=== PATIENT | male | born 1935 | race Hispanic/Latino ===

== ENCOUNTER 2023-12-10 17:13 | Emergency (ER) | payer BC, MEDICARE ==
[~2023-12-10] VITALS: Ht 177.8 cm; Wt 80.7 kg
[2023-12-10 17:20] VITALS: PULSE 55; RESP 16; O2SAT 100
[2023-12-10 18:33] VITALS: TEMP 97.7
[2023-12-10] MEDS ORDERED: FLOMAX0.4 MG PO (19:14)
== END 2023-12-10 19:30 | disposition home or self-care (01) ==
LOC: ER 18:01
DX: R33.9 Retention of urine, unspecified (principal); R30.0 Dysuria; R10.30 Lower abdominal pain, unspecified
CPT/HCPCS: 99283

== ENCOUNTER 2023-12-11 23:26 | Emergency (ER) | payer BC, MEDICARE ==
[~2023-12-11] VITALS: Ht 177.8 cm; Wt 80.7 kg
[~2023-12-11 23:26] MED LIST: FLOMAX0.4 MG PO
[2023-12-12 00:16] VITALS: PULSE 63; RESP 16; TEMP 98.5
[2023-12-12 00:49] LABS: BASOPHILS # (AUTO) 0.1 (0.0-0.1); BASOPHILS % 0.5 % (0.0-1.0); EOSINOPHILS # (AUTO) 0.2 (0.0-0.4); EOSINOPHILS % 1.9 % (0.0-6.0); HEMATOCRIT 40.7 % (38.2-49.6); HEMOGLOBIN 13.1 g/dL (14.0-18.0); LYMPHOCYTES # (AUTO) 1.6 (1.0-3.2); LYMPHOCYTES % 14.8 % (18.0-39.1); MEAN CORPUSCULAR HEMOGLOBIN 29.7 pg (28-32); MEAN CORPUSCULAR HGB CONC 32.2 g/dL (31-35); MEAN CORPUSCULAR VOLUME 92.3 fL (81-99); MONOCYTES # (AUTO) 0.8 (0.2-0.8); MONOCYTES % 7.3 % (4.4-11.3); NEUTROPHILS % 74.8 % (38.7-80.0); PLATELET COUNT 359 x10e3/uL (140-360); RED BLOOD COUNT 4.41 x10e6/uL (4.3-5.7); RED CELL DISTRIBUTION WIDTH 14.5 % (11.7-14.4); WHITE BLOOD COUNT 10.72 x10e3/uL (4.8-10.8)
[2023-12-12 01:04] LABS: ANION GAP 14.6 mmol/L (8-16); CALCIUM 9.5 mg/dL (8.4-10.2); CREATININE, SERUM 1.59 mg/dL (0.72-1.25); POTASSIUM 3.6 mmol/L (3.5-5.1)
[2023-12-12] MEDS: LIDOCAINE JELLY 2% 10ML URO-JET TOP ONE (01:19)
[2023-12-12 01:59] LABS: BILIRUBIN,URINE NEGATIVE (NEGATIVE); CLARITY,URINE CLOUDY (CLEAR); COLOR,URINE RED (YELLOW); GLUCOSE, URINE NEGATIVE (NEGATIVE); KETONES,URINE NEGATIVE (NEGATIVE); LEUKOCYTE ESTERASE ,URINE NEGATIVE (NEGATIVE); NITRITE,URINE NEGATIVE (NEGATIVE); PH,URINE 7 (5 - 7); PROTEIN,URINE DIPSTICK >=300 (NEGATIVE); URINE UROBILINOGEN 1 mg/dL (0.2 - 1)
[2023-12-12 02:00] LABS: RBC,URINE >50 /HPF (0-5); WBC,URINE (MAN) 0-5 /HPF (0-5)
[2023-12-12 02:01] LABS: BACTERIA,URINE MODERATE /HPF; EPITHELIAL CELLS,URINE RARE /LPF
[2023-12-12 02:57] VITALS: BP 156/69; PULSE 60; RESP 17; TEMP 98.4; O2SAT 100
== END 2023-12-12 02:53 | disposition home or self-care (01) ==
LOC: ER 23:32
DX: R31.9 Hematuria, unspecified (principal); R33.9 Retention of urine, unspecified; Z85.46 Personal history of malignant neoplasm of prostate
CPT/HCPCS: 36415; 51700; 80048; 81001; 85025; 87086; 99283

== ENCOUNTER 2024-05-24 22:13 | Inpatient (IN) | payer MEDICARE, BC ==
[~2024-05-24] VITALS: Ht 177.8 cm; Wt 80.7 kg
[2024-05-24 22:13] VITALS: TEMP 97.7
[2024-05-24 23:18] LABS: ALBUMIN 2.4 g/dL (3.5-5.0); ALBUMIN/GLOBULIN RATIO 0.8 (0.8-2.0); ANION GAP 23.4 mmol/L (8-16); CALCIUM 9.5 mg/dL (8.4-10.2); CREATININE, SERUM 3.62 mg/dL (0.72-1.25); TOTAL PROTEIN 5.5 g/dL (6.5-8.1)
[2024-05-24 23:19] LABS: LIPASE 77 U/L (8-78)
[2024-05-24 23:20] LABS: POTASSIUM 3.4 mmol/L (3.5-5.1)
[2024-05-24 23:29] LABS: BASOPHILS % 0.3 % (0.0-1.0); EOSINOPHILS # (AUTO) 0.1 (0.0-0.4); EOSINOPHILS % 0.6 % (0.0-6.0); HEMATOCRIT 37.4 % (38.2-49.6); HEMOGLOBIN 12.9 g/dL (14.0-18.0); LYMPHOCYTES # (AUTO) 1.7 (1.0-3.2); LYMPHOCYTES % 15.3 % (18.0-39.1); MEAN CORPUSCULAR HEMOGLOBIN 28.7 pg (28-32); MEAN CORPUSCULAR HGB CONC 34.5 g/dL (31-35); MEAN CORPUSCULAR VOLUME 83.3 fL (81-99); MONOCYTES # (AUTO) 0.9 (0.2-0.8); NEUTROPHILS # (AUTO) 7.8 (2.1-6.9); NEUTROPHILS % 71.4 % (38.7-80.0); PLATELET COUNT 298 x10e3/uL (140-360); RED BLOOD COUNT 4.49 x10e6/uL (4.3-5.7); RED CELL DISTRIBUTION WIDTH 16.9 % (11.7-14.4); WHITE BLOOD COUNT 10.87 x10e3/uL (4.8-10.8)
[2024-05-24 23:52] LABS: TROPONIN I < 0.05 ng/mL (0.0-0.40)
[2024-05-24] MEDS: SODIUM CHLORIDE 0.9% 1000ML 1,000 ML IV ONE (23:55)
[2024-05-25] VITALS (7 sets, daily range): BP systolic 100–110; BP diastolic 51–61; PULSE 64–76; RESP 15–20; TEMP 97–98; O2SAT 96–98
[2024-05-25] MEDS ORDERED: SODIUM CHLORIDE 0.9% 1000ML 1,000 ML ONE (02:45)
[2024-05-25] MEDS: SODIUM CHLORIDE 0.9% 1000ML 1,000 ML IV ONE (02:49)
[2024-05-25] MEDS ORDERED: ONDANSETRON HCL INJ 2MG/ML 2ML 2 MG/ML VIAL IV PRN ×2 (03:00→03:30)
[2024-05-25] MEDS ORDERED: BICALUTAMIDE50 MG PO (04:32)
[2024-05-25] MEDS ORDERED: MOTRIN200 MG PO (04:41)
[2024-05-25] MEDS ORDERED: ACETAMINOPHEN 325 MG TAB PO PRN (08:15)
[2024-05-25 09:22] LABS: TROPONIN I 0.023 ng/mL (0-0.300)
[2024-05-25 16:23] LABS: TROPONIN I 0.017 ng/mL (0-0.300)
[2024-05-25] MEDS: SODIUM CHLORIDE 0.9% 1000ML 1,000 ML IV SCH (17:22)
[2024-05-25 19:27] LABS: ALBUMIN/GLOBULIN RATIO 0.7 (0.8-2.0); BILIRUBIN,TOTAL 4.7 mg/dL (0.2-1.2); CALCIUM 8.7 mg/dL (8.4-10.2); CREATININE, SERUM 3.87 mg/dL (0.72-1.25); TOTAL PROTEIN 4.7 g/dL (6.5-8.1)
[2024-05-26] VITALS: BP 108/59; PULSE 77; RESP 18; TEMP 98.6; O2SAT 93
[2024-05-26] MEDS: ONDANSETRON HCL INJ 2MG/ML 2ML 2 MG/ML VIAL IV PRN (01:37)
[2024-05-26] MEDS: Morphine 4mg INJECTION 4 MG/ML INJ IV PRN (01:38)
[2024-05-26 04:00] VITALS: BP 87/49; PULSE 74; RESP 18; TEMP 97.6; O2SAT 96
[2024-05-26 05:28] LABS: BASOPHILS % 0.2 % (0.0-1.0); EOSINOPHILS # (AUTO) 0.1 (0.0-0.4); EOSINOPHILS % 0.8 % (0.0-6.0); HEMATOCRIT 37.3 % (38.2-49.6); HEMOGLOBIN 12.9 g/dL (14.0-18.0); LYMPHOCYTES % 9.5 % (18.0-39.1); MEAN CORPUSCULAR HEMOGLOBIN 29.3 pg (28-32); MEAN CORPUSCULAR HGB CONC 34.6 g/dL (31-35); MEAN CORPUSCULAR VOLUME 84.8 fL (81-99); MONOCYTES # (AUTO) 0.9 (0.2-0.8); MONOCYTES % 8.5 % (4.4-11.3); NEUTROPHILS # (AUTO) 7.9 (2.1-6.9); NEUTROPHILS % 76.8 % (38.7-80.0); PLATELET COUNT 260 x10e3/uL (140-360); RED CELL DISTRIBUTION WIDTH 16.9 % (11.7-14.4); WHITE BLOOD COUNT 10.24 x10e3/uL (4.8-10.8)
[2024-05-26 05:52] LABS: ALBUMIN 2.1 g/dL (3.5-5.0); ALBUMIN/GLOBULIN RATIO 0.8 (0.8-2.0); ANION GAP 22.4 mmol/L (8-16); BILIRUBIN,TOTAL 5.4 mg/dL (0.2-1.2); CALCIUM 8.4 mg/dL (8.4-10.2); CREATININE, SERUM 4.24 mg/dL (0.72-1.25); TOTAL PROTEIN 4.9 g/dL (6.5-8.1)
[2024-05-26 05:53] LABS: POTASSIUM 3.4 mmol/L (3.5-5.1)
[2024-05-26] MEDS: DEXTROSE 5%/0.45% SOD CHL 1,000 ML IV SCH (06:37)
[2024-05-26 08:14] VITALS: BP 98/50; PULSE 76; RESP 16; TEMP 98.7; O2SAT 97
[2024-05-26] MEDS ORDERED: LIDOCAINE HCL 1% 30ML-PF VIAL ONE (09:06)
[2024-05-26 09:51] LABS: INR 1.04; PROTHROMBIN TIME 14.2 seconds (11.9-14.5)
[2024-05-26 10:10] VITALS: BP 98/50; PULSE 76; RESP 16; TEMP 98.7; O2SAT 97
[2024-05-26 10:36] VITALS: BP 84/57
[2024-05-26] MEDS ORDERED: MIDAZOLAM HCL 2 MG/2 ML VIAL ONE (11:27)
[2024-05-26] MEDS ORDERED: SODIUM CHLORIDE 0.9% 250ML 250 ML ONE (11:27)
[2024-05-26] MEDS ORDERED: FENTANYL CITRATE/PF 100MCG/2 ML INJ ONE (11:27)
[2024-05-26 15:35] VITALS: BP 80/50; PULSE 65; RESP 16; TEMP 98.9; O2SAT 96
[2024-05-27] VITALS (7 sets, daily range): BP systolic 73–106; BP diastolic 40–54; PULSE 69–112; RESP 17–19; TEMP 97.5–99.4; O2SAT 90–97
[2024-05-27 06:19] LABS: HEPATITIS A ANTIBODY IGM (P) Negative; HEPATITIS B CORE IGM (P) Negative; HEPATITIS B SURFACE AG (P) Negative; HEPATITIS C ANTIBODY Non Reactive
[2024-05-27] MEDS ORDERED: PANTOPRAZOLE SO40 MG PO (11:05)
[2024-05-27] MEDS ORDERED: Morphine 4mg INJECTION 4 MG/ML INJ IV PRN (11:30)
[2024-05-27] MEDS: PROMETHAZINE 12.5MG/ NACL 0.9% 12.5 MG/50 ML BAG IV PRN (11:47)
== END 2024-05-27 17:36 | disposition hospice, home (50) | DRG 436 ==
LOC: ER 22:49 → ERHOLD 05-25 02:58 → MED/SURG2 05-25 03:47
PROVIDERS: ADMIT Internal Medicine; ATTEND Internal Medicine
PROC: 0FB13ZX Excision of Right Lobe Liver, Percutaneous Approach, Diagnostic (ICD-10-PCS; principal; 2024-05-26)
DX: C78.7 Secondary malignant neoplasm of liver and intrahepatic bile duct (principal); C79.51 Secondary malignant neoplasm of bone; J90 Pleural effusion, not elsewhere classified; N13.30 Unspecified hydronephrosis; R17 Unspecified jaundice; N17.9 Acute kidney failure, unspecified; J94.8 Other specified pleural conditions; M84.48XA Pathological fracture, other site, initial encounter for fracture; C80.1 Malignant (primary) neoplasm, unspecified; R62.7 Adult failure to thrive; E86.0 Dehydration; R07.9 Chest pain, unspecified; R53.1 Weakness; I44.7 Left bundle-branch block, unspecified; R16.0 Hepatomegaly, not elsewhere classified; N62 Hypertrophy of breast; Z68.25 Body mass index [BMI] 25.0-25.9, adult; M19.91 Primary osteoarthritis, unspecified site; D64.9 Anemia, unspecified; R59.0 Localized enlarged lymph nodes; R91.1 Solitary pulmonary nodule; I71.40 Abdominal aortic aneurysm, without rupture, unspecified; N32.9 Bladder disorder, unspecified; Z51.5 Encounter for palliative care; Z85.46 Personal history of malignant neoplasm of prostate; Z90.79 Acquired absence of other genital organ(s)
CPT/HCPCS: 36415; 47000; 71045; 71250; 72146; 72148; 74176; 74181; 76705; 76857; 76942; 80053; 82105; 82378; 82550; 82948; 83690; 84152; 84484; 85025; 85610; 85730; 86301; 88307; 88342; 93005; 97139; 99252; 99284; J2003; J2250; J2270; J2405; J2470; J2543; J2550; J7030; J7050